=== PATIENT | male | born 1945 | race Caucasian/White ===

== ENCOUNTER 2019-09-12 09:17 | Emergency (ER) | payer MEDICARE, OTHER ==
[2019-09-12 09:25] VITALS: BP 149/64; PULSE 68
[2019-09-12] MEDS ORDERED: Sodium Chloride 0.9% 10 ML Syringe FLUSH PRN (09:28)
[2019-09-12] MEDS ORDERED: Ondansetron 4 MG/2 ML SDV IV ONE (09:28)
[2019-09-12] MEDS ORDERED: HYDROmorphone 1 MG/ML Syringe IVPUSH ONE (09:34)
[2019-09-12] MEDS ORDERED: Sodium Chloride 0.9% 500 ML IV SCH (09:45)
[2019-09-12 10:10] LABS: ANION GAP 13.9
[2019-09-12] MEDS ORDERED: Tamsulosin 0.4 MG Cap.ER PO ONE (10:10)
[2019-09-12] MEDS ORDERED: Ketorolac 30 MG/ML SDV IVPUSH ONE (10:37)
--- NOTE | 2019-09-12 12:12 | EDM.PDOC ---
"Scribed by Ofe Mills 09/12/19 0947 for Donna Nielsen MD ED HPI GENERAL MEDICAL PROBLEM - General Chief Complaint: Abdominal Pain Stated Complaint: PAIN ON RIGHT SIDE Time Seen by Provider: 09/12/19 09:33 Source of Information: Reports: Patient, RN, RN Notes Reviewed History Limitations: Reports: No Limitations - History of Present Illness INITIAL COMMENTS - FREE TEXT/NARRATIVE: Patient presents to ER via POV with complaint of right lower abdominal pain that radiates to the back that started this morning. The pain is associated with nausea and vomiting. Denies dysuria, diarrhea, fever or chills. No history of previous kidney stone. He still has his appendix. Rates his pain a 03/23. Nothing alleviates or aggravates the pain. Onset: Today Duration: Getting Worse Location: Reports: Abdomen (with radiation backa nd forth to the right flank. ) Quality: Reports: Ache Severity: Severe Improves with: Reports: None Worsens with: Reports: None Associated Symptoms: Reports: No Other Symptoms Right Lower Abdomen Pain Score (Numeric/FACES): 8 - Related Data Allergies Allergy/AdvReac Type Severity Reaction Status Date / Time Penicillins Allergy Cannot Verified 09/12/19 09:21 Remember prednisone Allergy Cannot Verified 09/12/19 09:21 Remember Home Meds: Home Meds . [No Known Home Meds] 09/12/19 [History] Past Medical History HEENT History: Reports: None Cardiovascular History: Reports: [place] Respiratory History: Reports: None Gastrointestinal History: Reports: None Genitourinary History: Reports: None Musculoskeletal History: Reports: None Neurological History: Reports: None Psychiatric History: Reports: None Endocrine/Metabolic History: Reports: None Hematologic History: Reports: None Immunologic History: Reports: None Oncologic (Cancer) History: Reports: None Dermatologic History: Reports: None - Infectious Disease History Infectious Disease History: Reports: None - Past Surgical History Head Surgeries/Procedures: Reports: None Cardiovascular Surgical History: Reports: Other (See Below) Other Cardiovascular Surgeries/Procedures: triple by pass Social & Family History - Family History Family Medical History: Noncontributory - Tobacco Use Smoking Status *Q: Never Smoker Second Hand Smoke Exposure: No - Caffeine Use Caffeine Use: Reports: None - Recreational Drug Use Recreational Drug Use: No - Living Situation & Occupation Living situation: Reports: , with Spouse Occupation: Retired ED ROS GENERAL - Review of Systems Review Of Systems: Comprehensive ROS is negative, except as noted in HPI. ED EXAM, RENAL/ - Physical Exam Exam: See Below Exam Limited By: No Limitations General Appearance: Alert, WD/WN, No Apparent Distress, Other (Uncomfortable but non-toxic appearing) Eye Exam: Bilateral Eye: Normal Inspection Nose: Normal Inspection, Normal Mucosa, No Blood Throat/Mouth: Normal Inspection, Normal Lips, Normal Teeth, Normal Gums, Normal Oropharynx, Normal Voice, No Airway Compromise Head: Atraumatic, Normocephalic Neck: Normal Inspection, Non-Tender Respiratory/Chest: No Respiratory Distress, Lungs Clear, Normal Breath Sounds, No Accessory Muscle Use, Chest Non-Tender Cardiovascular: Regular Rate, Rhythm, No Edema GI/Abdominal: Normal Bowel Sounds, Soft, No Organomegaly, No Distention, Tender (RLQ). No: Guarding, Rigid, Rebound (Male) Exam: Deferred Rectal (Males) Exam: Deferred Back Exam: Normal Inspection, Full Range of Motion. No: CVA Tenderness (L), CVA Tenderness (R) Extremities: Normal Inspection Neurological: Alert, Oriented, CN II-XII Intact, Normal Cognition, Normal Gait, No Motor/Sensory Deficits Psychiatric: Normal Affect, Normal Mood Skin Exam: Warm, Dry, Intact, Normal Color, No Rash Course - Vital Signs Last Recorded V/S: Last Vital Signs Temp 97.6 F 09/12/19 09:21 Pulse 68 09/12/19 09:21 Resp 18 09/12/19 09:21 BP 149/64 H 09/12/19 09:21 Pulse Ox 98 09/12/19 09:21 - Orders/Labs/Meds Orders: Active Orders 24 hr Category Date Time Status Peripheral IV Care [RC] . DIRECTED Care 09/12/19 09:28 Active Abdomen Pelvis wo Cont [CT] Stat Exams 09/12/19 09:45 Taken CULTURE URINE [RM] Stat Lab 09/12/19 11:37 Received UA W/MICROSCOPIC [URIN] Stat Lab 09/12/19 11:37 Results Sodium Chloride 0.9% [Normal Saline] 500 ml Med 09/12/19 09:45 Active IV .BOLUS Sodium Chloride 0.9% [Saline Flush] Med 09/12/19 09:28 Active 10 ml FLUSH ASDIRECTED PRN Peripheral IV Insertion Adult [OM.PC] Routine Oth 09/12/19 09:28 Ordered Medication Orders Sodium Chloride (Normal Saline) 500 mls @ 999 mls/hr IV .BOLUS MICHAEL Last Admin: 09/12/19 09:45 Dose: 999 mls/hr Sodium Chloride (Saline Flush) 10 ml FLUSH ASDIRECTED PRN PRN Reason: Keep Vein Open Last Admin: 09/12/19 09:44 Dose: 10 ml Labs: Laboratory Tests 09/12/19 09/12/19 09/12/19 Range/Units 09:33 09:33 11:37 WBC 17.2 H (5.0-10.0) 10^3/uL RBC 4.56 L (4.6-6.2) 10^6/uL Hgb 15.0 (14.0-18.0) g/dL Hct 42.5 (40.0-54.0) % MCV 93.2 (80-100) fL MCH 32.9 (27.0-34.0) pg MCHC 35.3 H (33.0-35.0) g/dL Plt Count 316 (150-450) 10^3/uL Neut % (Auto) 71.7 (42.2-75.2) % Lymph % (Auto) 19.2 L (20.5-50.1) % [place] % (Auto) 8.0 (2-8) % Eos % (Auto) 0.8 L (1.0-3.0) % Baso % (Auto) 0.3 (0.0-1.0) % Sodium 137 (135-145) mmol/L Potassium 3.9 (3.6-5.0) mmol/L Chloride 106 (101-111) mmol/L Carbon Dioxide 21.0 (21.0-31.0) mmol/L Anion Gap 13.9 BUN 20 H (7-18) mg/dL Creatinine 1.2 (0.6-1.3) mg/dL Est Cr Clr Drug Dosing 45.91 mL/min Estimated GFR (MDRD) 59 BUN/Creatinine Ratio 16.66 Glucose 128 H (74-105) mg/dL Calcium 9.0 (8.4-10.2) mg/dl Total Bilirubin 0.7 (0.2-1.0) mg/dL AST 22 (10-42) IU/L ALT 23 (10-60) IU/L Alkaline Phosphatase 63 (42-121) IU/L Total Protein 7.0 (6.7-8.2) g/dl Albumin 3.8 (3.2-5.5) g/dl Globulin 3.2 Albumin/Globulin Ratio 1.19 Amylase 39 (28-100) U/L Lipase 33 (22-51) U/L Urine Color Yellow (YELLOW) Urine Appearance Clear (CLEAR) Urine pH 5.0 (5.0-9.0) Ur Specific [place] >= 1.030 (1.005-1.030) Urine Protein Negative (NEGATIVE) Urine Glucose (UA) Negative (NEGATIVE) Urine Ketones Negative (NEGATIVE) Urine Occult Blood Large H (NEGATIVE) Urine Nitrite Negative (NEGATIVE) Urine Bilirubin Negative (NEGATIVE) Urine Urobilinogen 0.2 (0.2-1.0) mg/dL Ur Leukocyte Esterase Small H (NEGATIVE) Meds: Medications Generic Name Dose Route Start Last Admin Trade Name Ja PRN Reason Stop Dose Admin Sodium Chloride 500 mls @ 999 mls/hr 09/12/19 09:45 09/12/19 09:45 Normal Saline IV 999 mls/hr .BOLUS MICHAEL Administration Sodium Chloride 10 ml 09/12/19 09:28 09/12/19 09:44 Saline Flush FLUSH 10 ml ASDIRECTED PRN Administration Keep Vein Open Discontinued Medications Generic Name Dose Route Start Last Admin Trade Name Ja PRN Reason Stop Dose Admin Hydromorphone HCl 1 mg 09/12/19 09:34 09/12/19 09:44 Dilaudid IVPUSH 09/12/19 09:35 1 mg ONETIME ONE Administration Ketorolac Tromethamine 30 mg 09/12/19 10:37 09/12/19 10:42 Toradol IVPUSH 09/12/19 10:38 30 mg ONETIME ONE Administration Ondansetron HCl 4 mg 09/12/19 09:28 09/12/19 09:39 Zofran IV 09/12/19 09:29 4 mg ONETIME ONE Administration Tamsulosin HCl 0.4 mg 09/12/19 10:10 09/12/19 10:16 Flomax PO 09/12/19 10:11 0.4 mg ONETIME ONE Administration - Radiology Interpretation Free Text/Narrative:: [facility] [place] [facility] Final Radiology Report Call: [phone] assistance Online chat: [email or web address] Name: IRIS ROSA Age: 73Years M Date: 09/12/2019 SSN: -- : [id number] Study: CT ABDOMEN/PELVIS WO Requesting Physician: DONNA NIELSEN Images: [id number] Addl Studies: Provided Clinical History: Contrast: Without Contrast Medium: Contrast Amount: Contrast Method: Page 1 of 2 PROCEDURE INFORMATION: Exam: CT Abdomen And Pelvis Without Contrast Exam date and time: 09/12/2019 10:04 AM Age: 73 years old Clinical indication: Abdominal pain; Patient HX: Pain rlq abd and RT flank TECHNIQUE: Imaging protocol: Computed tomography of the abdomen and pelvis without contrast. Radiation optimization: All CT scans at this facility use at least one of these dose optimization techniques: automated exposure control; mA and/or kV adjustment per patient size (includes targeted exams where dose is matched to clinical indication); or iterative reconstruction. COMPARISON: No relevant prior studies available. FINDINGS: Liver: No mass. Gallbladder and bile ducts: Unremarkable. No ductal dilation. Pancreas: Normal. No ductal dilation. Spleen: Normal. No splenomegaly. Adrenals: Normal. No mass. Kidneys and ureters: 2 x 3 mm distal right ureteral calculus located at the level of the acetabulum, minimal right hydronephrosis. No renal calculi, no left hydronephrosis. Stomach and bowel: No acute findings. No obstruction. No mucosal thickening. Appendix: No evidence of appendicitis. Intraperitoneal space: Unremarkable. No free air. No significant fluid collection. Vasculature: No abdominal aortic aneurysm. Lymph nodes: No significant adenopathy. Bladder: Unremarkable as visualized. IRIS ROSA | Final Radiology Report CONFIDENTIALITY STATEMENT This report is intended only for use by the referring physician, and only in accordance with law. If you received this in error, call [phone]. Page 2 of 2 Reproductive: Unremarkable as visualized. Bones/joints: No acute findings. Soft tissues: Unremarkable. IMPRESSION: 2 x 3 mm distal right ureteral calculus, right hydronephrosis. Thank you for allowing us to participate in the care of your patient. Dictated and Authenticated by: Ander Pinto MD 09/12/2019 11:26 AM Central Time ([place] & [place]) Departure - Departure Time of Disposition: 11:28 Disposition: Home, Self-Care 01 Condition: Good Clinical Impression: Kidney stone on right side - Discharge Information *PRESCRIPTION DRUG MONITORING PROGRAM REVIEWED*: Not Applicable *COPY OF PRESCRIPTION DRUG MONITORING REPORT IN PATIENT ALDO: Not Applicable Instructions: Renal Colic, [id number], Kidney Stones, [id number] Forms: ED Department Discharge Additional Instructions: Rx: Percocet (Oxycodone) 5mg/325mg *Do not drive while under the influence of this medication. Use a stool softener to prevent constipation while taking this medication. Rx: Flomax 0.4mg Rx: Zofran 4mg Follow up with your primary clinic doctor in 2 to 3 days if stone does not pass on its own, and consider referral to urologist. Return to ER if you develop a fever, or severe/uncontrolled pain. Sepsis Event Note - Evaluation Sepsis Screening Result: No Definite Risk - Focused Exam Vital Signs: Vital Signs Temp Pulse Resp BP Pulse Ox 09/12/19 09:21 97.6 F 68 18 149/64 H 98 Date Exam was Performed: 09/12/19 Time Exam was Performed: 12:12 - My Orders Last 24 Hours: My Active Orders 09/12/19 09:28 Peripheral IV Care [RC] . DIRECTED Sodium Chloride 0.9% [Saline Flush] 10 ml FLUSH ASDIRECTED PRN Peripheral IV Insertion Adult [OM.PC] Routine 09/12/19 09:45 Abdomen Pelvis wo Cont [CT] Stat Sodium Chloride 0.9% [Normal Saline] 500 ml IV .BOLUS 09/12/19 11:37 CULTURE URINE [RM] Stat UA W/MICROSCOPIC [URIN] Stat - Assessment/Plan Last 24 Hours: My Active Orders 09/12/19 09:28 Peripheral IV Care [RC] . DIRECTED Sodium Chloride 0.9% [Saline Flush] 10 ml FLUSH ASDIRECTED PRN Peripheral IV Insertion Adult [OM.PC] Routine 09/12/19 09:45 Abdomen Pelvis wo Cont [CT] Stat Sodium Chloride 0.9% [Normal Saline] 500 ml IV .BOLUS 09/12/19 11:37 CULTURE URINE [RM] Stat UA W/MICROSCOPIC [URIN] Stat I have read and agree with the documentation that has been completed regarding this visit. By signing this record, I attest that the documentation was completed in my physical presence and is an accurate record of the encounter."
== END 2019-09-12 12:20 | disposition home or self-care (01) ==
LOC: DL.ED 09:17
DX: N13.2 Hydronephrosis with renal and ureteral calculous obstruction (principal); I25.2 Old myocardial infarction; Z88.0 Allergy status to penicillin; Z88.8 Allergy status to other drugs, medicaments and biological substances
CPT/HCPCS: 36415; 74176; 80053; 81001; 82150; 83690; 85025; 87086; 96374; 96375; 99284; A9270; J1170; J1885; J2405; J7040